=== PATIENT | male | born 1955 | race Two or more races ===

== ENCOUNTER 2017-11-30 19:47 | Emergency (ER) | payer MEDICAID ==
[~2017-11-30] VITALS: Ht 167.6 cm; Wt 72.6 kg
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
--- NOTE | 2017-11-30 20:36 | NUR ---
JULIANN OFFICERS AT BEDSIDE TALKING TO PT.
[2017-11-30] MEDS ORDERED: ACETAMINOPHEN ES 500 MG TABLET ONE (21:57)
[2017-11-30] MEDS ORDERED: ACETAMINOPHEN 325 MG TABLET PO ONE (22:00)
--- NOTE | 2017-11-30 22:08 | NUR ---
Patient discharged to home in stable condition. Written and verbal after care instructions given. Patient verbalizes understanding of instruction. ambulatory with a steady gait
[2017-11-30 22:09] VITALS: BP 142/86
== END 2017-11-30 22:09 | disposition home or self-care (01) ==
LOC: ER 19:49
DX: S20.219A Contusion of unspecified front wall of thorax, initial encounter (principal); E11.9 Type 2 diabetes mellitus without complications; V89.2XXA Person injured in unspecified motor-vehicle accident, traffic, initial encounter; Y93.89 Activity, other specified; Y92.410 Unspecified street and highway as the place of occurrence of the external cause; Y99.8 Other external cause status
CPT/HCPCS: 71045-TC; A4606; Z7610